=== PATIENT | male | born 1960 | race Caucasian/White ===

== ENCOUNTER → 2018-09-06 | Outpatient (CLI) | payer BC, OTHER ==
[~2018-09-06] MED LIST: CATHETER FLUSH 10 ML SYR IV PRN; CIPR-17 PO; CLIN-62 PO; CLIN300C3 PO; CPR500T PO; IOHEXOL 350 MG/ML 100 ML (OMNIPAQUE 350) VIAL IV ONE; NS 100 ML (IVPB) BAG IV ONE; RECEIVED CONTRAST (Hold Metformin) IV SCH; TRM50T PO
--- NOTE | 2018-09-06 14:41 | Diagnostic Imaging Report ---
INDICATION: Family history of abdominal aortic aneurysms. COMPARISON: No prior studies are available for comparison. FINDINGS: The lung bases are clear. No discrete liver mass is identified. The gallbladder is unremarkable. There is no biliary duct dilatation. The pancreas and spleen are unremarkable. No adrenal mass is detected. The kidneys are unremarkable. The abdominal aorta is normal in caliber. No aneurysm is identified. The origins to the celiac, SMA and NANCY are widely patent. There are single renal arteries bilaterally which appear to be patent. The central retroperitoneum is unremarkable. The small and large bowel loops are normal caliber. There is no ascites. The common as well as external and internal iliac arteries are normal caliber. The entire pelvis was not included on this study. The partially filled urinary bladder and partially visualized bladder is unremarkable. IMPRESSION: No evidence of abdominal aortic aneurysm. Dictated by: Dictated on workstation # [id number]
== END ==
LOC: CARD 10:36
PROVIDERS: ATTEND Family Medicine
DX: I10 Essential (primary) hypertension (principal); R01.1 Cardiac murmur, unspecified; I08.1 Rheumatic disorders of both mitral and tricuspid valves; Z82.49 Family history of ischemic heart disease and other diseases of the circulatory system
CPT/HCPCS: 74174; 93306